=== PATIENT | female | born 1955 ===

== ENCOUNTER 2017-10-25 08:00 | Outpatient (CLI) | payer BC | END 2017-10-25 08:01 | disposition home or self-care (01) | LOC: BICMAMMO 08:00 | PROVIDERS: ATTEND Internal Medicine | DX: Z12.31 Encounter for screening mammogram for malignant neoplasm of breast (principal) | CPT/HCPCS: 77063; 77067; G0202 ==

== ENCOUNTER 2018-11-23 08:10 | Outpatient (CLI) | payer BC ==
--- NOTE | 2018-11-23 10:21 | BD ---
BONE DENSITOMETRY: INDICATION: A 63-year-old female for postmenopausal osteoporosis screening. FINDINGS: Lumbar Spine: BMD (g/cm2) L1 1.104 T-Score: 1.0 L2 1.130 T-Score: 0.9 L3 1.188 T-Score: 0.9 L4 1.124 T-Score: 0.6 L1-L4 1.137 T-Score: 0.8 Femoral Neck: 0.703 T-Score: -1.3 Total Femur: 0.957 T-Score: 0.1 A previous bone mineral density from 04/20/2007 revealed a total lumbar spine density of 1.090 and a to flaco femur density of 0.866. Impression: 1. Lumbar spine density within normal range. 2. Femoral neck density indicates osteopenia. TEN-YEAR FRACTURE RISK: Major osteoporotic fracture: 8.3%. Hip Fracture: 0.7%. POS: [facility]
== END 2018-11-23 08:11 | disposition home or self-care (01) ==
LOC: BICMAMMO 08:10
PROVIDERS: ATTEND Internal Medicine
DX: Z12.31 Encounter for screening mammogram for malignant neoplasm of breast (principal); Z80.3 Family history of malignant neoplasm of breast; M85.89 Other specified disorders of bone density and structure, multiple sites
CPT/HCPCS: 77063; 77067; 77080